=== PATIENT | male | born 1970 | race Caucasian/White ===

== ENCOUNTER 2016-11-12 13:54 | Emergency (ER) | payer OTHER ==
[~2016-11-12] VITALS: Ht 175.3 cm; Wt 108.9 kg
--- NOTE | ~2016-11-12 | CR127 ---
[facility] A Service of [facility] & [facility] RADIOLOGY TEXT RESULTS PATIENT: JAD PEREZ LOCATION: CFTX : 66 UNIT #: [id number] AGE: [address]: Eusebia Connors APRN SEX: M ORDER DR: [id number] [facility] [address] [place], [place] [address] [id number] E MR#: [id number] Acc #: [id number] NAME: JAD PEREZ : 1970 SEX: M STUDY DATE/TIME: 11/12/2016 15:06 UNIT: CFIL ROOM: STUDY DESCRIPTION: CR Foot Complete Min 3 View Rt Attending Physician: Eusebia Connors A.P.R.N. Ordering Physician: Ed James Ramos M.D. Primary Care Physician: Bridger Potts M.D. MEDICAL IMAGING REPORT This report is preliminary unless electronic signature is present EXAM Right foot 3 views HISTORY Foot pain since yesterday after twisting injury. FINDINGS 3 views of the right foot demonstrate mild hallux valgus deformity and mild degenerative arthritis at the first MTP joint. Remainder of the bone alignment is normal. No fracture or dislocation. Mild degenerative changes in the ankle. Small metal foreign body immediately anterior to the distal Achilles tendon 2.5 cm proximal to the calcaneus. IMPRESSION 1. No fracture. No acute finding. 2. Mild hallux valgus deformity. 3. 3 mm metal foreign body in the soft tissues immediately anterior to the distal Achilles tendon 2.5 cm proximal to the calcaneus. Dictated by... Jason Maldonado M.D. THIS IS AN ELECTRONICALLY VERIFIED REPORT Jason Maldonado M.D. at 11/12/2016 11:12 PM DFL/to TD: 11/12/2016 20:02 JOB #: [id number] MEDICAL IMAGING REPORT Page 1 of 1 COPY
--- NOTE | ~2016-11-12 | CR253 ---
[facility] A Service of [facility] & [facility] RADIOLOGY TEXT RESULTS PATIENT: JAD PEREZ LOCATION: CFTX : 66 UNIT #: [id number] AGE: [address]: Eusebia Connors APRN SEX: M ORDER DR: [id number] [facility] [address] [place], [place] [address] [id number] E MR#: [id number] Acc #: [id number] NAME: JAD PEREZ : 1970 SEX: M STUDY DATE/TIME: 11/12/2016 15:05 UNIT: [facility] ROOM: STUDY DESCRIPTION: CR Tibia and Fibula 2 Views Rt Attending Physician: Eusbeia Connors A.P.R.N. Ordering Physician: Ed James Ramos M.D. Primary Care Physician: Bridger Potts M.D. MEDICAL IMAGING REPORT This report is preliminary unless electronic signature is present EXAM Right tibia-fibula. INDICATIONS Pain in right lower leg and foot since yesterday after stepping in a hole. FINDINGS There is no evidence of fracture, dislocation, or radiopaque foreign body. IMPRESSION Normal tibia and fibula. Dictated by... Carmine Rajan M.D. THIS IS AN ELECTRONICALLY VERIFIED REPORT Carmine Rajan M.D. at 11/12/2016 8:15 PM Dariusz TD: 11/12/2016 19:10 JOB #: [id number] MEDICAL IMAGING REPORT Page 1 of 1 COPY
[~2016-11-12 13:54] MED LIST: DELSYM30 MG/5 ML PO; DILANTIN PO; EFFEXOR PO; ERY-TAB500 MG PO; FLOMAX0.4 MG PO; HYDROXYZINE HCL25 M1 PO; KETOPROFEN PO; NORCO 7.5/325 T1 TAB PO; SKELAXIN PO; TRAZODONE PO; TYLOX 5/500 CAP1 CAP PO; VICODIN 5/500 T1 TAB PO; VICODIN PO
== END 2016-11-12 17:45 | disposition home or self-care (01) ==
LOC: CFTX 13:54 → CED 13:54 → CFTX 14:52
DX: S93.491A Sprain of other ligament of right ankle, initial encounter (principal); F17.200 Nicotine dependence, unspecified, uncomplicated; W18.42XA Slipping, tripping and stumbling without falling due to stepping into hole or opening, initial encounter
CPT/HCPCS: 29515; 73590; 73630; 99283